=== PATIENT | female | born 1965 ===

== ENCOUNTER 2017-07-07 11:12 | Emergency (ER) | payer OTHER ==
[2017-07-07] MEDS ORDERED: ONDANSETRON HCL 4 MG/2 ML SOL IV ONE (11:53)
[2017-07-07] MEDS ORDERED: SODIUM CHLORIDE 0.9% 1000ML 1,000 ML IV ONE ×2 (11:53→13:32)
[2017-07-07] MEDS ORDERED: ONDANSETRON HCL 4 MG/2 ML SOL ONE (11:56)
[2017-07-07] MEDS ORDERED: LORAZEPAM 2 MG/ML SOL IV ONE (13:32)
[2017-07-07] MEDS ORDERED: LORAZEPAM 2 MG/ML SOL ONE (13:33)
[2017-07-07 13:45] VITALS: TEMP 97.9
[2017-07-07 14:41] VITALS: BP 157/93; PULSE 60; RESP 20; O2SAT 96
== END 2017-07-07 15:10 | disposition home or self-care (01) ==
LOC: ED 11:12
DX: K52.9 Noninfective gastroenteritis and colitis, unspecified (principal)
CPT/HCPCS: 74177; 84703; 96365; 96366; 96374; 96375; 99284; 99285; J2060; J2405; Q9967